=== PATIENT | female | born 1975 | race African-American/Black ===

== ENCOUNTER 2024-01-05 19:07 | Emergency (ER) | payer OTHER, SELFPAY ==
[2024-01-05 19:29] VITALS: BP 111/86; PULSE 100; RESP 18; TEMP 36.4; O2SAT 100
[2024-01-05 19:34] LABS: Glucose Point of Care 466 mg/dl (65-105)
[2024-01-06 00:54] VITALS: BP 113/81; PULSE 94; RESP 16; TEMP 36.4; O2SAT 97
[2024-01-06 01:00] LABS: Glucose Point of Care 341 mg/dl (65-105)
[2024-01-06 02:14] VITALS: BP 124/72; PULSE 82; RESP 14; O2SAT 100
[2024-01-06 02:18] LABS: Glucose Point of Care 353 mg/dl (65-105)
[2024-01-06] MEDS: SODIUM CHLORIDE 0.9% IV 1,000 ML 999 ML IV CONT (02:24)
--- NOTE | 2024-01-06 02:24 | ED.RECABL ---
HPI - Recheck/Abnormal Lab/Rx General Chief Complaint: Recheck/Abnormal Lab/Rx Stated Complaint: my diabetes high Time Seen by Provider: 01/06/24 01:49 History of Present Illness HPI narrative: 48-year-old female with history of type 2 diabetes he takes Trulicity. Presents to the emergency room with a chief complaint of feeling like her sugars are out of control. Does not take any insulin or other medications. Is otherwise in her normal state of health. Dose that her sugars have been going to the 3-400 range. Vital signs are reassuring. Denies any fever, chills, headache, nauseous, vomiting, abdominal pain, back pain. Occasionally she gets some blurriness to her vision attributes it to the high blood sugar range. Does not know her A1c. Related Data Allergies Allergy/AdvReac Type Severity Reaction Status Date / Time No Known Allergies Allergy Unverified 01/05/24 19:08 Review of Systems Review of Systems: As reviewed above Exam Narrative: GENERAL: [Well-appearing, well-nourished, and in no acute distress.] HEAD: [Normocephalic, atraumatic.] EYES: [PERRLA and EOMI.] ENT: Nares clear, no rhinorrhea or epistaxis. Mucous membranes moist. NECK: Supple. CHEST: [Clear to auscultation. No respiratory distress.] HEART: [Regular rate and rhythm]. No murmur heard. [Normal peripheral pulses.] ABDOMEN: [Soft, nondistended], [nontender], [No rigidity or guarding] EXTREMITIES: Normal range of motion. [No edema.] SKIN: Warm, dry, no rash. NEURO: [No focal deficits]. Alert and oriented [x3.] PSYCH: [Normal mood and affect.] Course Vital Signs Vital signs: Vital Signs Temperature 36.4 C L 01/05/24 19:29 Pulse Rate 100 01/05/24 19:29 Respiratory Rate 18 01/05/24 19:29 Blood Pressure 111/86 01/05/24 19:29 Pulse Oximetry 100 01/05/24 19:29 Temperature 36.4 C L 01/06/24 00:54 Pulse Rate 82 01/06/24 02:14 Respiratory Rate 14 01/06/24 02:14 Blood Pressure 124/72 01/06/24 02:14 Pulse Oximetry 100 01/06/24 02:14 MDM - Recheck/Abnormal Lab/Rx MDM Narrative Medical decision making narrative: 48-year-old female with history of type 2 diabetes on Trulicity present to the emergency department for uncontrolled blood sugars. Occasion she gets blurry vision presently she is asymptomatic. She has normal reassuring vital signs. No respiratory distress or labored breathing. She appears well and conversant full sentences with normal mentation. Differential diagnosis includes asymptomatic hyperglycemia, nonketotic hyperglycemia, less likely diabetic ketoacidosis or HHS. Will obtain a workup including a CBC, CMP, magnesium, phosphorus, beta hydroxybutyrate level, A1c level, test. Urinalysis was obtained and she was given a fluid bolus as well as rechecking her glucose which was downtrending since her arrival to the ED. Workup revealed no leukocytosis or anemia. A1c was significantly elevated 12.1. Electrolytes all within normal limits, no acidosis, no anion gap, no low bicarb. Glucose 330. Hyperglycemia without significant ketosis. hydroxybutyrate very mildly elevated. No clinical signs of DKA. Urinalysis revealed a florid urinary tract infection with greater than 100 white blood cells, leukocyte esterase, nitrite positivity and 4+ bacteria. Urine culture was sent off. She is given a dose of Bactrim. She was also given dose of 5 units of insulin. She will be sent home with a prescription for Bactrim. She has a primary care provider appointment this morning and I encouraged to keep that appointment and discuss insulin therapy regimens to be started on given her significant elevated A1c. We will send her home with copies of her laboratory results so she can follow-up this morning in clinic. Patient was re-evaluated and felt improved after interventions. Patient stable for discharge home at this time. Medical Records Attestation: I reviewed the patient's medical records. Lab Data
[2024-01-06 02:25] LABS: Basophils Absolute Auto 0.1 K/mm3 (0.0-0.1); Basophils Percent Auto 0.7 % (0.2-1.2); Eosinophils Absolute Auto 0.1 K/mm3 (0-0.3); Eosinophils Percent Auto 1.5 % (0-4.4); Hematocrit 42.5 % (37.0-47.0); Hemoglobin 14.8 g/dL (12.0-15.0); Immature Granulocyte Absolute 0.03 K/mm3 (0.00-0.031); Immature Granulocyte Percent A 0.4 % (0-0.5); Lymphocytes Percent Auto 35.1 % (18.3-44.2); Mean Corpuscular HGB Conc 34.8 g/dl (32-36); Mean Corpuscular Hemoglobin 29.5 pg (26-34); Mean Corpuscular Volume 84.7 fl (80-100); Mean Platelet Volume 10.7 fl (7.4-10.4); Monocytes Absolute Auto 0.4 K/mm3 (0.1-0.6); Monocytes Percent Auto 6.4 % (2.6-8.5); Neutrophils Absolute Auto 3.8 K/mm3 (1.3-6.7); Neutrophils Percent Auto 55.9 % (45.5-73.1); Platelet Count Result 190 k/mm3 (150-375); Red Blood Count 5.02 M/mm3 (4.2-5.4); Red Cell Distribution Width 11.9 % (11.5-14.5); White Blood Count 6.8 K/mm3 (4.5-10.0)
[2024-01-06 02:41] LABS: Alanine Aminotransferase 13 U/L (6-35); Albumin Level 4.7 g/dL (3.5-5.1); Alkaline Phosphatase 119 U/L (38-126); Anion Gap 11 mmol/L (4-12); Aspartate Amino Transferase 23 U/L (14-36); Bilirubin,Total 0.9 mg/dL (0.2-1.3); Blood Urea Nitrogen 11 mg/dL (7-17); Calcium 9.6 mg/dL (8.4-10.2); Carbon Dioxide 24 mmol/L (22-30); Chloride 99 mmol/L (98-107); Estimated CRCL calculation 62 ml/min; Estimated Glomerular Filt Rate > 60; Glucose 330 mg/dL (65-110); Magnesium 1.8 mg/dL (1.6-2.3); Potassium 3.8 mmol/L (3.4-5.0); Sodium 134 mmol/L (137-145)
[2024-01-06 02:43] LABS: Beta-Hydroxybutyrate/Acetoacetate 0.52 mmol/L (0.02-0.27)
[2024-01-06 03:01] LABS: Add Urine Microscopic? YES; Appearance Urine Turbid (Clear); Bacteria Urine 4+ /hpf; Bilirubin Urine Negative (Negative); Blood Urine 3+ (Negative); Color Urine Yellow (Yellow); Glucose Urine UA 3+ mg/dL (Negative); Ketones Urine 1+ mg/dL (Negative); Leukocyte Esterase Ur 1+ LEU/UL (Negative); Need Manual Microscopic Reviewed; Nitrate Urine Positive (Negative); Non Pathogenic Casts 0-2; Protein Urine 3+ mg/dL (Negative); Specific Grav Ur 1.042 (1.001-1.035); Squamous Epithelial Cell Urine None Seen /hpf (Few); WBC Urine >100 /hpf (0-3); pH Urine 5.5 (5.0-9.0)
[2024-01-06 04:23] LABS: Hemoglobin A1C 12.1 % (<5.7)
[2024-01-06] MEDS: SULFAMETHOXAZOLE/TRIMETHOPRIM 800/160 MG DS TABLET 1 TAB PO (05:14)
[2024-01-06 05:30] VITALS: BP 128/78; PULSE 88; RESP 20; O2SAT 100
[2024-01-06 14:30] LABS: BEDSIDEPREGUCG Negative (Negative)
== END 2024-01-06 05:31 | disposition home or self-care (01) ==
PROVIDERS: Emergency Provider Student in an Organized Health Care Education/Training Program
DX: E11.65 Type 2 diabetes mellitus with hyperglycemia (principal); N39.0 Urinary tract infection, site not specified; Z79.4 Long term (current) use of insulin
CPT/HCPCS: 36415; 80053; 81001; 81025; 82010; 82948; 83036; 83735; 84100; 85025; 87077; 87086; 87088; 87186; 96360; 96361; 99283; A9270; J7030